=== PATIENT | female | born 1985 | race Caucasian/White ===

== ENCOUNTER 2020-08-09 08:26 | Emergency (ER) | payer OTHER ==
[~2020-08-09 08:26] MED LIST: BACTRIM DS TAB1 EACH PO; DIFLUCAN150 MG PO; METRONIDAZOLE500 MG PO; NORETHIN-EE 1.1 EACH PO
[2020-08-09] MEDS ORDERED: BACTRIM DS TAB1 EACH PO (08:55)
== END 2020-08-09 09:00 | disposition home or self-care (01) ==
LOC: FER 08:26
DX: L02.31 Cutaneous abscess of buttock (principal)
CPT/HCPCS: 87070; 87077; 87205

== ENCOUNTER 2020-09-30 19:59 | Day surgery (SDCO) | payer OTHER ==
[2020-10-01 00:22] LABS: BASOPHIL 0.1 % (0-2); EOSINOPHIL 0.7 % (0-5); HCT 25.8 % (37.0-47.0); HGB 8.3 g/dl (12.5-16.0); LYMPHOCYTE 22.8 % (15-48); MCH 35.9 pg (25.0-31.0); MCHC 32.2 g/dL (32.0-36.0); MCV 111.7 fL (78.0-100.0); MONOCYTE 71.9 % (0-12); MPV 10.4 fL (6.0-9.5); NRBC 0.1; PLT 44 K/uL (150-400); RBC 2.31 M/uL (4.20-5.40); RDW 16.9 % (11.5-14.0)
[2020-10-01 00:47] LABS: ALBUMIN 3.5 g/dL (3.4-5.0); BILIRUBIN - TOTAL 0.3 mg/dL (0.2-1.0); BUN/CREAT RATIO (CALC) 7.7 RATIO; CREATININE 0.91 mg/dL (0.51-0.95); GLOBULIN (CALCULATION) 3.7 g/dL; POTASSIUM 3.5 mmol/L (3.5-5.1); TOTAL PROTEIN 7.2 g/dL (6.4-8.2)
[2020-10-01 00:52] LABS: NEUTROPHIL 2.5 % (41-80)
[2020-10-01 02:04] LABS: CORONAVIRUS 2019 SARS-COV-2 NEGATIVE (NEGATIVE)
[2020-10-01 02:05] LABS: INFLUENZA A NAA NEGATIVE (NEGATIVE)
[2020-10-01] MEDS ORDERED: AUGMENTIN250 MG PO (02:27)
[2020-10-01 03:21] LABS: MONOSPOT (MONONUCLEOSIS) NEGATIVE (NEGATIVE)
[2020-10-01 06:34] LABS: BASOPHIL 0.1 % (0-2); EOSINOPHIL 1.3 % (0-5); HCT 23.7 % (37.0-47.0); HGB 7.5 g/dl (12.5-16.0); MCH 35.5 pg (25.0-31.0); MCHC 31.6 g/dL (32.0-36.0); MCV 112.3 fL (78.0-100.0); MONOCYTE 78.3 % (0-12); MPV 9.3 fL (6.0-9.5); NEUTROPHIL 2.1 % (41-80); NRBC 0; RBC 2.11 M/uL (4.20-5.40); RDW 17.1 % (11.5-14.0)
[2020-10-01 07:22] LABS: BASOPHIL(M) 1 % (0-2); BLAST 66; EOSINOPHIL(M) 2 % (0-5); LYMPHOCYTE(M) 17 % (15-48); MONOCYTE(M) 9 % (0-12); NEUTROPHILS(M) 1 % (41-80); TOTAL CELL COUNT 200; VARIANT LYMPHOCYTE 6
[2020-10-01 07:27] LABS: PLATELET ESTIMATE DECREASED; PLATELET MORPHOLOGY NORMAL
[2020-10-01 07:28] LABS: ANISOCYTOSIS SLIGHT; SPHEROCYTES RARE
[2020-10-01 07:30] LABS: WBC 59.8 K/uL (4.0-10.5)
[2020-10-01 07:31] LABS: PLT 36 K/uL (150-400)
[2020-10-01 10:28] LABS: RETICULOCYTE COUNT 0.7 % (1.0-2.0)
[2020-10-01 10:37] LABS: INR 1.23 (0.9-1.2); PROTHROMBIN TIME 14.7 SECONDS (11.4-13.6); PTT 34.4 SECONDS (22.2-34.7)
[2020-10-01 11:17] LABS: C-REACTIVE PROTEIN 2.1 mg/dL (<=0.90); FOLIC ACID (SERUM) 4.6 ng/mL (8.6-58.9); FT4 (FREE T4) 1.1 ng/dL (0.76-1.46); MAGNESIUM 1.9 mg/dL (1.8-2.4)
[2020-10-01 13:47] LABS: BILIRUBIN NEGATIVE (NEGATIVE); BLOOD TRACE-LYSED Ery/uL (NEGATIVE); CLARITY CLEAR (CLEAR); COLOR YELLOW (YELLOW); GLUCOSE (U) NORMAL (NORMAL); LEUKOCYTES NEGATIVE Leu/uL (NEGATIVE); NITRITE NEGATIVE (NEGATIVE); PROTEIN NEGATIVE (NEGATIVE); UROBILINOGEN 0.2 mg/dL (0.2-1.0)
[2020-10-01 13:55] LABS: BACTERIA TRACE; URINARY RBC RARE; URINARY WBC RARE; YEAST PRESENT
[2020-10-02 05:10] LABS: HBSAG SCREEN Negative (Negative); HEP A AB, IGM Negative (Negative); HEP B CORE AB, IGM Negative (Negative); HEP C VIRUS AB <0.1 (0.0-0.9)
--- NOTE | 2020-10-02 10:17 | NUR ---
10/02/20 Ms. Crowley and her 2 children share a home together; ages 11 and 16. The children are currently staying with their paternal grandfather. - Ms. Crowley was indepedent in the home and community prior to admission.
== END 2020-10-03 15:33 | disposition other institution (70) ==
LOC: FER 19:59 → FMS 10-01 01:18
PROVIDERS: Emergency Medicine; Internal Medicine Hematology & Oncology; Nurse Practitioner; ADMIT Internal Medicine
DX: C95.00 Acute leukemia of unspecified cell type not having achieved remission (principal); K04.7 Periapical abscess without sinus; D61.818 Other pancytopenia; N92.0 Excessive and frequent menstruation with regular cycle; F17.210 Nicotine dependence, cigarettes, uncomplicated; Z20.822 Contact with and (suspected) exposure to COVID-19; Z98.890 Other specified postprocedural states
CPT/HCPCS: 36415; 71045; 80053; 80074; 81001; 82607; 82652; 82668; 82728; 82746; 83010; 83540; 83550; 83615; 83735; 84439; 84443; 85025; 85610; 85730; 86140; 86308; 86880; G0378; J2250; J2405; J2704; J3010; J7030; J7120; Q0169; U0002